=== PATIENT | male | born 1985 | race Caucasian/White ===

== ENCOUNTER 2016-05-17 10:39 | Emergency (ER) | payer SELFPAY ==
--- NOTE | 2016-05-17 11:08 | ER Document Report ---
ED Medical Screen (RME) - General Stated Complaint: LEG PAIN Mode of Arrival: Ambulatory Information source: Patient Notes: Patient reports left lower extremity swelling for the past week. Patient does complain of pain to left calf area. Patient denies any recent immobilization. Patient denies any chest pain or shortness of breath. hx: Asthma I have greeted and performed a rapid initial assessment of this patient. A comprehensive ED assessment and evaluation of the patient, analysis of test results and completion of the medical decision making process will be conducted by additional ED providers. - Related Data Allergies/Adverse Reactions: No Known Allergies Allergy (Verified 05/17/16 11:04) Past Medical History Pulmonary Medical History: Reports: Hx Asthma Physical Exam - Vital signs Vitals: Temp Pulse Resp BP Pulse Ox 98.3 F 84 18 128/93 H 96 05/17/16 11:02 05/17/16 11:02 05/17/16 11:02 05/17/16 11:02 05/17/16 11:02 - Extremities General lower extremity: Edema - Left lower extremity Course - Re-evaluation Re-evalutation: 05/17/16 11:[address] Bermudez regarding diagnostic evaluation. Agrees with plan for venous doppler - Vital Signs Vital signs: Temp Pulse Resp BP Pulse Ox 98.3 F 84 18 128/93 H 96 05/17/16 11:02 05/17/16 11:02 05/17/16 11:02 05/17/16 11:02 05/17/16 11:02
--- NOTE | 2016-05-17 11:10 | ER Document Report ---
ED Extremity Problem, Lower - General Chief Complaint: Leg Pain Stated Complaint: LEG PAIN Mode of Arrival: Ambulatory Information source: Patient TRAVEL OUTSIDE OF THE [place] IN LAST 30 DAYS: No - HPI Patient complains to provider of: Pain, Swelling Location: Leg - LEFT Occurred: Yesterday - SWELLING, PRECEDED BY SEVERAL DAYS' DISCOMFORT. Onset/Duration: Gradual Quality of pain: Dull Context: Other - LAST WEEK, NOTED FREQUENT "CRAMPS" IN CALF. denies: Direct blow, Fell, Prolonged pressure on ext, Recent immobilization, Recent surgery, Recent travel, Stubbed, Twisted Recent injury: No Associated symptoms: denies: Chest pain, Rapid heart rate, Short of breath - Related Data Allergies/Adverse Reactions: No Known Allergies Allergy (Verified 05/17/16 11:04) Past Medical History - General Information source: Patient - Social History Smoking Status: Current Every Day Smoker Chew tobacco use (# tins/day): No Frequency of alcohol use: None Drug Abuse: None Family History: Reviewed & Not Pertinent Patient has suicidal ideation: No Patient has homicidal ideation: No - Past Medical History Cardiac Medical History: Reports: None Pulmonary Medical History: Reports: Hx Asthma Neurological Medical History: Reports: None Endocrine Medical History: Reports: None Renal/ Medical History: Reports: None. Denies: Hx Peritoneal Dialysis Malignancy Medical History: Reports None GI Medical History: Reports: None Musculoskeltal Medical History: Denies Hx Gout, Reports Hx Muscle Spasm, Denies Hx Musculoskeletal Trauma, Denies Hx Myositis Skin Medical History: Reports Hx Cellulitis Psychiatric Medical History: Reports: None Surgical Hx: Negative Review of Systems - Review of Systems Constitutional: No symptoms reported EENT: No symptoms reported Cardiovascular: No symptoms reported Respiratory: No symptoms reported Gastrointestinal: No symptoms reported Genitourinary: No symptoms reported Musculoskeletal: See HPI Skin: No symptoms reported Neurological/Psychological: No symptoms reported Physical Exam - Vital signs Vitals: Temp Pulse Resp BP Pulse Ox 98.3 F 84 18 128/93 H 96 05/17/16 11:02 05/17/16 11:02 05/17/16 11:02 05/17/16 11:02 05/17/16 11:02 Interpretation: Hypertensive. No: Tachycardic, Hypoxic, Tachypneic - General General appearance: Appears well, Alert In distress: None - HEENT Head: Normocephalic Eyes: Normal Conjunctiva: Normal - Respiratory Respiratory status: No respiratory distress Breath sounds: Normal - Cardiovascular Rhythm: Regular Heart sounds: Normal auscultation Murmur: No - Abdominal Inspection: Normal - Back Back: Normal - Extremities General upper extremity: Normal inspection General lower extremity: No: Normal inspection - L. CALF (SEE BELOW) Calf: Tender, Other - SLIGHTLY EDEMATOUS - Neurological Neuro grossly intact: Yes Cognition: Normal Orientation: AAOx4 - Psychological Associated symptoms: Normal affect, Normal mood - Skin Skin Temperature: Warm Skin Moisture: Dry Skin Color: Normal Skin Turgor: Elastic Course - Vital Signs Vital signs: Temp Pulse Resp BP Pulse Ox 98.3 F 84 18 128/93 H 96 05/17/16 11:02 05/17/16 11:02 05/17/16 11:02 05/17/16 11:02 05/17/16 11:02 - Laboratory Result Diagrams: 05/17/16 14:28 05/17/16 14:28 Laboratory results interpreted by me: 05/17/16 05/17/16 14:28 14:28 Hgb 17.2 H MCV 98 H MCH 34.2 H Plt Count 144 L Glucose 136 H Discharge - Discharge Clinical Impression: Deep venous thrombosis Qualifiers: DVT location: lower extremity Affected thrombotic vein of extremity: popliteal Laterality: left Chronicity: acute Qualified Code(s): I82.432 - Acute embolism and thrombosis of left popliteal vein Condition: Stable Disposition: HOME, SELF-CARE Instructions: DVT Outpatient Treatment ([facility]) Additional Instructions: STAY OFF YOUR FEET MUCH POSSIBLE, KEEP LEFT LEG ELEVATED. TAKE ELIQUIS DIRECTED. FOLLOW UP TOMORROW WITH DR. LEAL, CALL OFFICE IN A.M. FOR APPT. TIME. RETURN TO E.R. IF YOU HAVE ANY NEW PROBLEMS, ANY TIME. Prescriptions: Apixaban [Eliquis] 10 mg PO Q12 #30 tablet Referrals: BRYAN LEAL MD [ACTIVE STAFF] - Follow up tomorrow
--- NOTE | 2016-05-17 13:52 | XCELERA REPORT ---
[address] [address] Lower Extremity Venous Evaluation Name: DANIEL CHAMBERS Age: 30 yrs Gender: Male : 1985 Patient Status: Emergency Patient Location: ER Study Date: 05/17/2016 01:04 PM Procedure: Color flow and duplex imaging of the veins of the left lower extremity as well as the right Common Femoral vein. Reason For Study: LLE pain, swelling Ordering Physician: KRYSTAL MORAN Performed By: Deb Guadarrama Right Sided Venous Evaluation Abnormal vessel filling wall to wall, diminished compression and Colour flow in the Popliteal, Peroneal and short Saphenous veins. Otherwise normal. Left Sided Venous Evaluation The left common femoral vein is fully compressible. Spontaneous and phasic flow is present in the left common femoral vein. Critical Findings Calld in to Dr Bermudez at 1400. Interpretation Summary Popliteal DVT on the left, with superficial phlebitis. : KRYSTAL MORAN > Jesús Montelongo
[2016-05-17 14:44] LABS: ABSOLUTE EOSINOPHILS # (AUTO) 0.2 10^3/uL (0.0-0.6); ABSOLUTE LYMPHOCYTES (AUTO) 1.4 10^3/uL (0.5-4.7); ABSOLUTE MONOCYTES (AUTO) 0.7 10^3/uL (0.1-1.4); ABSOLUTE NEUT (AUTO) 5.2 10^3/uL (1.7-8.2); BASOPHILS % (AUTO) 0.6 % (0-2); EOSINOPHILS % (AUTO) 2.2 % (0-6); HEMATOCRIT 49.3 % (37.9-51.0); HEMOGLOBIN 17.2 g/dL (13.5-17.0); HGB HCT DIFFERENCE 2.3; LYMPHOCYTES % (AUTO) 18.7 % (13-45); MEAN CORPUSCULAR HEMOGLOBIN 34.2 pg (27.0-33.4); MEAN CORPUSCULAR HGB CONC 34.8 g/dL (32.0-36.0); MEAN CORPUSCULAR VOLUME 98 fl (80-97); MONOCYTES % (AUTO) 9.9 % (3-13); RED BLOOD COUNT 5.02 10^6/uL (4.35-5.55); RED CELL DISTRIBUTION WIDTH 12.5 % (11.5-14.0); SEGMENTED NEUTROPHILS % (AUTO) 68.6 % (42-78); WHITE BLOOD COUNT 7.5 10^3/uL (4.0-10.5)
[2016-05-17 14:52] LABS: PROTHROMBIN TIME 12.8 SEC (11.4-15.4)
[2016-05-17 14:53] LABS: PARTIAL THROMBOPLASTIN TIME 30.7 SEC (23.5-35.8)
[2016-05-17 15:05] LABS: ALANINE AMINOTRANSFERASE 48 U/L (21-72); ALBUMIN 3.5 g/dL (3.5-5.0); ALKALINE PHOSPHATASE 75 U/L (38-126); ANION GAP 10 (5-19); ASPARTATE AMINO TRANSFERASE 29 U/L (17-59); BILIRUBIN,TOTAL 1.2 mg/dL (0.2-1.3); BLOOD UREA NITROGEN 12 mg/dL (7-20); CALCIUM 9.5 mg/dL (8.4-10.2); CARBON DIOXIDE 30 mmol/L (22-30); CHLORIDE 99 mmol/L (98-107); CREATININE RESULT 0.89 mg/dL (0.52-1.25); GLUCOSE 136 mg/dL (75-110); SODIUM 138.5 mmol/L (137-145); TOTAL PROTEIN 6.6 g/dL (6.3-8.2)
[2016-05-17 15:46] LABS: APPEARANCE,URINE CLOUDY; BILIRUBIN,URINE NEGATIVE (NEGATIVE); GLUCOSE, URINE NEGATIVE (NEGATIVE); KETONES,URINE NEGATIVE (NEGATIVE); LEUKOCYTE ESTERASE,URINE NEGATIVE (NEGATIVE); NITRITE,URINE NEGATIVE (NEGATIVE); PROTEIN,URINE NEGATIVE (NEGATIVE); URINE SPECIFIC GRAVITY 1.008; UROBILINOGEN,URINE NEGATIVE mg/dL (<2.0)
[2016-05-17] MEDS ORDERED: ENOXAPARIN SODIUM INJ 120 MG/0.8 ML DISP.SYRIN SUBCUT ONE (16:15)
[2016-05-17 16:30] VITALS: BP 120/80
[2016-05-17] MEDS ORDERED: ENOXAPARIN SODIUM INJ 120 MG/0.8 ML DISP.SYRIN SUBCUT SCH (22:00)
== END 2016-05-17 16:14 | disposition home or self-care (01) ==
LOC: ER 10:39
DX: I82.432 Acute embolism and thrombosis of left popliteal vein (principal); M79.605 Pain in left leg; F17.200 Nicotine dependence, unspecified, uncomplicated
CPT/HCPCS: 99283; 96372; 36415; 85025; 85610; 85730; 80053; 81001; 93971 ×2; J1650

== ENCOUNTER → 2016-08-17 | Outpatient (CLI) | payer SELFPAY | LOC: SP 15:59 | PROVIDERS: ATTEND Internal Medicine | DX: I82.432 Acute embolism and thrombosis of left popliteal vein (principal) | CPT/HCPCS: 93971 ==